=== PATIENT | male | born 1950 | race Caucasian/White ===

== ENCOUNTER 2022-08-01 11:02 | Outpatient (CLI) | payer OTHER ==
[2022-08-01 16:53] LABS: PSA FREE 0.814 ng/mL (0.16-2.81)
[2022-08-01 16:55] LABS: PSA TOTAL 3.955 ng/mL (0.000-2.000)
== END 2022-08-01 11:03 | disposition home or self-care (01) ==
LOC: LAB.S 11:02
DX: R97.20 Elevated prostate specific antigen [PSA] (principal)
CPT/HCPCS: 36415; 84153; 84154

== ENCOUNTER 2022-11-01 10:03 | Outpatient (CLI) | payer OTHER ==
[2022-11-01 15:21] LABS: PSA FREE 0.772 ng/mL (0.16-2.81)
[2022-11-01 15:22] LABS: PSA TOTAL 3.51 ng/mL (0.000-2.000)
== END 2022-11-01 10:04 | disposition home or self-care (01) ==
LOC: LAB.S 10:03
PROVIDERS: ATTEND Physician Assistant
DX: R97.20 Elevated prostate specific antigen [PSA] (principal)
CPT/HCPCS: 36415; 84153; 84154